=== PATIENT | female | born 1980 | race Two or more races ===

== ENCOUNTER 2020-05-13 21:25 | Emergency (ER) | payer SELFPAY ==
[~2020-05-13] VITALS: Ht 152.4 cm; Wt 56.8 kg
--- NOTE | 2020-05-13 21:48 | NUR ---
UA CUP GIVEN IN TRIAGE.
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
--- NOTE | 2020-05-13 23:29 | NUR ---
PATIENT IN IMAGING
[2020-05-13 23:43] LABS: ALANINE AMINOTRANSFERASE 12 U/L (12-78); ALBUMIN 3.9 g/dL (3.4-5.0); ANION GAP 3 mmol/L (5-15); CHLORIDE 106 mmol/L (98-107); CREATININE 0.84 mg/dL (0.55-1.02)
[2020-05-13 23:48] LABS: ALKALINE PHOSPHATASE 95 U/L (45-117); BILIRUBIN,TOTAL 0.6 mg/dL (0.2-1.0); TOTAL PROTEIN 8.1 g/dL (6.4-8.2)
[2020-05-14 00:10] LABS: BASOPHILS % (AUTO) 1 % (0-1); EOSINOPHILS % (AUTO) 1 % (1-7); LYMPHOCYTES % (AUTO) 23 % (22-44); MEAN CORPUSCULAR HEMOGLOBIN 30.3 pg (27.0-34.8); MEAN CORPUSCULAR HGB CONC 32.4 g/dL (32.4-35.8); MEAN PLATELET VOLUME 8.8 fL (7.4-10.4); MONOCYTES % (AUTO) 7 % (2-9); NEUTROPHILS % (AUTO) 69 % (42-75); PLATELET COUNT 303 x10^3/uL (130-400); RED BLOOD COUNT 4.71 x10^6/uL (3.82-5.3); RED CELL DISTRIBUTION WIDTH 13.9 % (9.6-15.2)
[2020-05-14 00:13] LABS: MICROSCOPIC INDICATED
[2020-05-14 00:15] LABS: MD NO
[2020-05-14 00:46] VITALS: BP 112/68
--- NOTE | 2020-05-14 00:46 | NUR ---
Patient given discharge instructions and they have confirmed that they understand the instructions. Patient ambulatory with steady gait.
== END 2020-05-14 00:51 | disposition home or self-care (01) ==
LOC: ED 05-14 00:18
DX: S16.1XXA Strain of muscle, fascia and tendon at neck level, initial encounter (principal); G89.11 Acute pain due to trauma; R07.89 Other chest pain; R11.2 Nausea with vomiting, unspecified; M32.9 Systemic lupus erythematosus, unspecified; V43.52XA Car driver injured in collision with other type car in traffic accident, initial encounter; Y93.89 Activity, other specified; Y92.488 Other paved roadways as the place of occurrence of the external cause; Y99.8 Other external cause status
CPT/HCPCS: 36415; 72050; 74022; 80053; 81001; 83690; 84703; 85025; 87086; 99284